=== PATIENT | male | born 1945 | race Caucasian/White ===

== ENCOUNTER 2022-01-20 10:31 | Day surgery (SDC) | payer MEDICARE ==
[2022-01-20] MEDS: Polymyxin B/Trimethoprim 10 ML Bottle EYELF SCH ×4 (10:37→13:08)
[2022-01-20] MEDS: Brimonidine 0.2% Ophth Soln 5 ML Bottle EYELF SCH ×4 (10:47→13:08)
[2022-01-20] MEDS: Phenylephrine 2.5% Ophth Soln 2 ML Bot EYELF SCH ×6 (10:50→13:07)
[2022-01-20] MEDS: Tropicamide 1% Ophth Soln 15 ML Bottle EYELF SCH ×4 (10:54→11:29)
[2022-01-20] MEDS: Tetracaine HCl/PF 0.5% 4 ML Bottle EYEBOTH SCH ×3 (11:40→13:07)
[2022-01-20] MEDS: Lidocaine 1% PF 2 ML SDV INJECT SCH ×2 (11:58→13:07)
[2022-01-20] MEDS: Cefuroxime 10 MG/ML SYRINGE EYELF SCH ×2 (12:07→13:08)
[2022-01-20] MEDS: Pilocarpine 4% Ophth Soln 15 ML Bot EYELF SCH ×2 (12:08→13:08)
== END 2022-01-20 12:18 | disposition home or self-care (01) ==
LOC: JD.SDS 10:31
PROVIDERS: ATTEND Ophthalmology
DX: H25.813 Combined forms of age-related cataract, bilateral (principal); H54.7 Unspecified visual loss; K21.9 Gastro-esophageal reflux disease without esophagitis; E66.9 Obesity, unspecified; Z68.30 Body mass index [BMI] 30.0-30.9, adult; Z88.6 Allergy status to analgesic agent; Z90.89 Acquired absence of other organs; Z98.890 Other specified postprocedural states; Z79.899 Other long term (current) drug therapy
CPT/HCPCS: 66984; J0697; V2632

== ENCOUNTER 2022-02-17 11:07 | Day surgery (SDC) | payer MEDICARE ==
[2022-02-17] MEDS: Polymyxin B/Trimethoprim 10 ML Bottle EYERT SCH ×4 (12:34→14:44)
[2022-02-17] MEDS: Brimonidine 0.2% Ophth Soln 5 ML Bottle EYERT SCH ×4 (12:43→14:44)
[2022-02-17] MEDS: Phenylephrine 2.5% Ophth Soln 2 ML Bot EYERT SCH ×6 (12:49→14:18)
[2022-02-17] MEDS: Tropicamide 1% Ophth Soln 15 ML Bottle EYERT SCH ×4 (12:54→14:02)
[2022-02-17] MEDS: Cefuroxime 10 MG/ML SYRINGE EYERT SCH ×2 (13:54→14:43)
[2022-02-17] MEDS: Lidocaine 1% PF 2 ML SDV INJECT SCH ×2 (13:54→14:26)
[2022-02-17] MEDS: Tetracaine HCl/PF 0.5% 4 ML Bottle EYEBOTH SCH ×5 (13:54→14:25)
[2022-02-17] MEDS: Pilocarpine 4% Ophth Soln 15 ML Bot EYERT SCH ×2 (13:55→14:44)
[2022-02-17] MEDS ORDERED: Ondansetron 4 MG/2 ML SDV IVPUSH PRN (14:24)
== END 2022-02-17 14:57 | disposition home or self-care (01) ==
LOC: JD.SDS 11:07
PROVIDERS: ATTEND Ophthalmology
DX: H25.811 Combined forms of age-related cataract, right eye (principal); H17.11 Central corneal opacity, right eye; H16.103 Unspecified superficial keratitis, bilateral; H16.223 Keratoconjunctivitis sicca, not specified as Sjogren's, bilateral; H02.834 Dermatochalasis of left upper eyelid; H02.831 Dermatochalasis of right upper eyelid; H54.7 Unspecified visual loss; Z88.6 Allergy status to analgesic agent; E66.9 Obesity, unspecified; Z68.30 Body mass index [BMI] 30.0-30.9, adult; Z96.1 Presence of intraocular lens; Z98.890 Other specified postprocedural states; Z79.899 Other long term (current) drug therapy
CPT/HCPCS: 66984; J0697; V2632